=== PATIENT | male | born 1955 | race Caucasian/White ===

== ENCOUNTER 2024-04-13 06:14 | Day surgery (SDC) | payer MEDICARE, SELFPAY ==
[2024-04-13 07:45] LABS: Glucose - Point of Care 159 mg/dl (70-99)
== END 2024-04-13 08:51 | disposition home or self-care (01) ==
LOC: GI 06:14
PROVIDERS: ATTENDING PHYSICIAN Internal Medicine Gastroenterology; FAMILY PHYSICIAN Family Medicine
DX: K22.89 Other specified disease of esophagus (principal); K31.89 Other diseases of stomach and duodenum; Z13.810 Encounter for screening for upper gastrointestinal disorder
CPT/HCPCS: 43239; 88305; 82962; 88342

== ENCOUNTER 2024-05-23 06:18 | Day surgery (SDC) | payer MEDICARE, SELFPAY ==
[2024-05-23 09:44] LABS: Glucose - Point of Care 128 mg/dl (70-99)
== END 2024-05-23 12:11 | disposition home or self-care (01) ==
LOC: GI 06:18
PROVIDERS: ATTENDING PHYSICIAN Internal Medicine Gastroenterology; FAMILY PHYSICIAN Family Medicine
DX: Z12.11 Encounter for screening for malignant neoplasm of colon (principal); K64.8 Other hemorrhoids; Q43.8 Other specified congenital malformations of intestine; K63.5 Polyp of colon; K62.1 Rectal polyp; Z86.0100 Personal history of colon polyps, unspecified
CPT/HCPCS: 45385; 88305; 82962